=== PATIENT | male | born 1965 | race Caucasian/White ===

== ENCOUNTER → 2018-01-26 | Outpatient (CLI) | payer MEDICARE ==
[~2018-01-26] MED LIST: AMLO5TAB7 PO; CEPH-368 PO; HYDR-3622 PO; METO50TA82 PO; OMEP20TA62 PO
[2018-01-26 16:17] LABS: ALANINE AMINOTRANSFERASE 43 U/L (12-78); ALBUMIN 3.8 g/dL (3.4-5.0); ANION GAP 9 mmol/L (5-15); CALCIUM 8.7 mg/dL (8.5-10.1); CHLORIDE 107 mmol/L (98-107)
[2018-01-26 16:19] LABS: ALKALINE PHOSPHATASE 51 U/L (45-117); BILIRUBIN,TOTAL 0.4 mg/dL (0.2-1.0); TOTAL PROTEIN 7.2 g/dL (6.4-8.2)
[2018-01-26 16:21] LABS: BASOPHILS # (AUTO) 0.05 x10^3/uL (0-0.1); BASOPHILS % (AUTO) 1 % (0-1); EOSINOPHILS # (AUTO) 0.19 x10^3/uL (0-0.4); EOSINOPHILS % (AUTO) 2 % (1-7); LYMPHOCYTES # (AUTO) 1.47 x10^3/uL (1-3.4); LYMPHOCYTES % (AUTO) 18 % (22-44); MD NO; MEAN CORPUSCULAR HEMOGLOBIN 26.5 pg (27.5-34.5); MEAN CORPUSCULAR HGB CONC 32.8 g/dL (33.2-36.2); MEAN CORPUSCULAR VOLUME 80.8 fL (81-97); MEAN PLATELET VOLUME 8.7 fL (7.4-10.4); MONOCYTES # (AUTO) 0.63 x10^3/uL (0.2-0.8); MONOCYTES % (AUTO) 8 % (2-9); NEUTROPHILS # (AUTO) 5.94 x10^3/uL (1.8-6.8); NEUTROPHILS % (AUTO) 72 % (42-75); PLATELET COUNT 228 x10^3/uL (130-400); RED BLOOD COUNT 5.83 x10^6/uL (4.38-5.82); RED CELL DISTRIBUTION WIDTH 18.6 % (9.4-14.8)
[2018-01-26 16:21] LABS: MICROSCOPIC NOT IND
[2018-01-26 16:27] LABS: CULTURE INDICATED? NO
== END | disposition home or self-care (01) ==
LOC: STAR 15:03
PROVIDERS: ATTEND Orthopaedic Surgery
DX: Z01.818 Encounter for other preprocedural examination (principal); M16.12 Unilateral primary osteoarthritis, left hip; M25.552 Pain in left hip
CPT/HCPCS: 36415; 80053; 81003; 85025; 87081; 93005

== ENCOUNTER 2018-02-01 11:02 | Inpatient (IN) | payer MEDICARE ==
[~2018-02-01] VITALS: Ht 175.3 cm; Wt 92.1 kg
[2018-02-01] MEDS ORDERED: VANCOMYCIN PER PHARMACY MC STA (11:30)
[2018-02-01] MEDS ORDERED: LACTATED RINGERS 1,000 ML IV SCH (11:50)
[2018-02-01] MEDS ORDERED: ONDANSETRON ODT 8 MG PO ONE (12:00)
[2018-02-01] MEDS ORDERED: VANCOMYCIN 1,800 MG in SODIUM CHLORIDE 0.9% 250 ML IV ONE (12:00)
[2018-02-01] MEDS ORDERED: GABAPENTIN 300 MG CAPSULE PO ONE (12:00)
[2018-02-01] MEDS ORDERED: ACETAMINOPHEN 500 MG TABLET PO ONE (12:00)
[2018-02-01] MEDS ORDERED: FAMOTIDINE 20 MG TABLET PO ONE (12:00)
[2018-02-01] MEDS ORDERED: MIDAZOLAM 1 MG/ML, 2ML ONE (12:14)
[2018-02-01] MEDS ORDERED: FENTANYL PF 250 MCG/5ML ONE ×2 (12:14→14:58)
[2018-02-01] MEDS ORDERED: ONDANSETRON 2MG/ML, 2ML ONE (12:48)
[2018-02-01] MEDS ORDERED: SUCCINYLCHOLINE 20 MG/ML, 10ML ONE (12:48)
[2018-02-01] MEDS ORDERED: DEXAMETHASONE 4 MG/ML, 1ML ONE (12:48)
[2018-02-01] MEDS ORDERED: CEFAZOLIN 1,000 MG ONE (12:48)
[2018-02-01] MEDS ORDERED: ROCURONIUM 10MG/ML,5ML ONE (12:48)
[2018-02-01] MEDS ORDERED: GLYCOPYRROLATE 0.2MG/1ML, 5ML ONE (12:48)
[2018-02-01] MEDS ORDERED: PROPOFOL 10 MG/ML, 20ML ONE (12:48)
[2018-02-01] MEDS ORDERED: NEOSTIGMINE 1 MG/ML, 10ML ONE (12:48)
[2018-02-01] MEDS ORDERED: KETOROLAC 60 MG/2 ML ONE (13:26)
[2018-02-01] MEDS ORDERED: TRANEXAMIC ACID 100 MG/ML, 10ML ONE (13:26)
[2018-02-01] MEDS ORDERED: SODIUM CHLORIDE 0.9% 100 ML ONE (13:27)
[2018-02-01] MEDS ORDERED: ROPIvacaine/PF 0.2%, 20 ML ONE (13:27)
[2018-02-01] MEDS ORDERED: EPINEPHRINE 1 MG/ML, 1ML ONE (13:27)
[2018-02-01] MEDS ORDERED: KETAMINE 50 MG/ML, 10ML ONE (13:47)
[2018-02-01] MEDS ORDERED: LIDOCAINE 2% 100MG/5ML SYRINGE ONE (13:56)
[2018-02-01] MEDS ORDERED: ONDANSETRON 2MG/ML, 2ML IV PRN ×2 (14:30→16:00)
[2018-02-01] MEDS ORDERED: ONDANSETRON ODT 8 MG PO PRN (14:30)
[2018-02-01] MEDS ORDERED: LABETALOL 5MG/ML, 20ML IV PRN (14:30)
[2018-02-01] MEDS ORDERED: OXYcodone 5 MG/5 ML ORAL.SOL UDC PO PRN (14:30)
[2018-02-01] MEDS ORDERED: PROCHLORPERAZINE 5 MG/ML, 2ML IV PRN (14:30)
[2018-02-01] MEDS ORDERED: DIAZEPAM 5 MG/ML, 2ML IVPush PRN (14:30)
[2018-02-01] MEDS ORDERED: MORPHINE SULFATE 4 MG/ML, 1ML IVPush PRN (14:30)
[2018-02-01] MEDS ORDERED: MEPERIDINE/PF 25MG/0.5ML IVPush PRN (14:30)
[2018-02-01] MEDS ORDERED: hydrALAzine 20 MG/ML, 1ML IV PRN (14:30)
[2018-02-01] MEDS ORDERED: DIAZEPAM 5 MG TABLET PO PRN (16:00)
[2018-02-01] MEDS ORDERED: PROMETHAZINE 25 MG/ML, 1ML IM PRN (16:00)
[2018-02-01] MEDS: KETOROLAC 30 MG/1 ML IV SCH ×2 (16:00→22:05)
[2018-02-01] MEDS: ACETAMINOPHEN 650 MG/20.3 ML UDC PO SCH ×2 (16:00→22:05)
[2018-02-01] MEDS ORDERED: DIPHENHYDRAMINE 25 MG CAPSULE PO PRN (16:00)
[2018-02-01] MEDS ORDERED: ALUMINUM/MAG/SIMETHICONE 30 ML UDC PO PRN (16:00)
[2018-02-01] MEDS ORDERED: HYDROmorphone 1 MG/ML, 1ML IV PRN (16:00)
[2018-02-01] MEDS ORDERED: BISACODYL 10 MG SUPP PR PRN (16:00)
[2018-02-01] MEDS ORDERED: PROMETHAZINE 12.5 MG SUPP PR PRN (16:00)
[2018-02-01] MEDS ORDERED: MAGNESIUM HYDROXIDE 8%, 30ML UDC PO PRN (16:00)
[2018-02-01] MEDS ORDERED: ZOLPIDEM 5MG TABLET PO PRN (16:00)
[2018-02-01] MEDS ORDERED: SENNA/DOCUSATE TABLET PO PRN (16:00)
[2018-02-01] MEDS ORDERED: ONDANSETRON 4 MG TABLET PO PRN (16:00)
[2018-02-01] MEDS: FENTANYL PF 100 MCG/2ML IV PRN ×2 (16:15→16:25)
[2018-02-01] MEDS: HYDROmorphone 1 MG/ML, 1ML IV PRN ×2 (16:20→16:30)
[2018-02-01] MEDS: TAMSULOSIN 0.4 MG CAP.ER.24H PO SCH (16:30)
[2018-02-01] MEDS ORDERED: TRANEXAMIC ACID 1,000 MG in SODIUM CHLORIDE 0.9% 100 ML IVPB ONE (16:30)
[2018-02-01] MEDS: ASPIRIN 81 MG TABLET EC PO SCH (17:54)
[2018-02-01] MEDS: D5%-0.45% NACL 1,000 ML IV SCH ×2 (17:55→23:59)
[2018-02-01 19:20] VITALS: BP 142/84
[2018-02-01] MEDS: CEFAZOLIN 2,000 MG in DEXTROSE 5% 50 ML IVPB SCH (20:22)
[2018-02-01] MEDS: OXYcodone IR 5MG TABLET PO PRN (20:22)
[2018-02-01] MEDS: DOCUSATE 100 MG CAPSULE PO SCH (20:22)
[2018-02-01 23:54] VITALS: BP 128/77
[2018-02-02] MEDS: OXYcodone IR 5MG TABLET PO PRN ×3 (00:11→04:40)
[2018-02-02] MEDS: KETOROLAC 30 MG/1 ML IV SCH ×2 (04:24→10:00)
[2018-02-02] MEDS: ACETAMINOPHEN 650 MG/20.3 ML UDC PO SCH ×2 (04:24→10:00)
[2018-02-02] MEDS: CEFAZOLIN 2,000 MG in DEXTROSE 5% 50 ML IVPB SCH (04:30)
[2018-02-02 04:32] VITALS: BP 111/61
[2018-02-02] MEDS ORDERED: OMEPRAZOLE 20 MG CAPSULE.DR PO SCH (06:00)
[2018-02-02] MEDS ORDERED: DEXAMETHASONE 4 MG/ML, 1ML IVPush SCH (06:00)
[2018-02-02] MEDS: ASPIRIN 81 MG TABLET EC PO SCH (06:09)
[2018-02-02 07:20] VITALS: BP 128/75
[2018-02-02] MEDS: DOCUSATE 100 MG CAPSULE PO SCH (07:46)
[2018-02-02] MEDS: TAMSULOSIN 0.4 MG CAP.ER.24H PO SCH (07:47)
[2018-02-02] MEDS: D5%-0.45% NACL 1,000 ML IV SCH (07:47)
[2018-02-02] MEDS ORDERED: METOPROLOL TARTRATE 50 MG TABLET PO SCH (09:00)
[2018-02-02] MEDS ORDERED: MULTIVITAMINS/MINERALS TABLET PO SCH (09:00)
[2018-02-02] MEDS ORDERED: AMLODIPINE 5 MG TABLET PO SCH (09:00)
[2018-02-02] MEDS ORDERED: ASPI-621 PO (11:45)
== END 2018-02-02 12:52 | disposition home or self-care (01) | DRG 468 ==
LOC: ORIP 11:02 → 4NOR 17:14
PROVIDERS: ADMIT Orthopaedic Surgery; ATTEND Orthopaedic Surgery
PROC: 0SPB0JZ Removal of Synthetic Substitute from Left Hip Joint, Open Approach (ICD-10-PCS; 2018-02-01)
PROC: 0KNP0ZZ Release Left Hip Muscle, Open Approach (ICD-10-PCS; 2018-02-01)
PROC: 0SRB02Z Replacement of Left Hip Joint with Metal on Polyethylene Synthetic Substitute, Open Approach (ICD-10-PCS; principal; 2018-02-01 13:15)
DX: T84.84XA Pain due to internal orthopedic prosthetic devices, implants and grafts, initial encounter (principal); G89.29 Other chronic pain; M54.9 Dorsalgia, unspecified; M65.9 Synovitis and tenosynovitis, unspecified; X58.XXXA Exposure to other specified factors, initial encounter; Y93.89 Activity, other specified; Y92.89 Other specified places as the place of occurrence of the external cause; Y99.8 Other external cause status; Y83.8 Other surgical procedures as the cause of abnormal reaction of the patient, or of later complication, without mention of misadventure at the time of the procedure; J45.909 Unspecified asthma, uncomplicated; K21.9 Gastro-esophageal reflux disease without esophagitis; S76.012A Strain of muscle, fascia and tendon of left hip, initial encounter
CPT/HCPCS: 36415; 72170; 82962; 85014; 85018; 86850; 86900; G0378; J0171; J0690; J1100; J1170; J1885; J2250; J2405; J2704; J2710; J2795; J3010; J3370; J3490; Q0162; C1776; J0330; J7050; J7120

== ENCOUNTER → 2018-03-30 | Outpatient (CLI) | payer MEDICARE ==
[~2018-03-30] MED LIST changes: +AMLO-150 PO; -AMLO5TAB7 PO; +ASPI81TA45 PO
== END | disposition home or self-care (01) ==
LOC: STAR 11:21
PROVIDERS: ATTEND Orthopaedic Surgery
DX: M25.551 Pain in right hip (principal); L03.113 Cellulitis of right upper limb; M70.21 Olecranon bursitis, right elbow; M54.5 Low back pain; G56.02 Carpal tunnel syndrome, left upper limb; M19.011 Primary osteoarthritis, right shoulder; M50.30 Other cervical disc degeneration, unspecified cervical region; Z96.643 Presence of artificial hip joint, bilateral
CPT/HCPCS: 87081

== ENCOUNTER 2018-04-06 07:30 | Inpatient (IN) | payer MEDICARE ==
[~2018-04-06] VITALS: Ht 175.3 cm; Wt 92.4 kg
[2018-04-19] MEDS ORDERED: MIDAZOLAM 1 MG/ML, 2ML ONE (11:50)
[2018-04-19] MEDS ORDERED: FENTANYL PF 250 MCG/5ML ONE ×2 (11:51→14:33)
[2018-04-19] MEDS ORDERED: LACTATED RINGERS 1,000 ML IV SCH (11:54)
[2018-04-19] MEDS ORDERED: PROPOFOL 50 ML ONE ×2 (11:57→15:25)
[2018-04-19] MEDS ORDERED: VANCOMYCIN PER PHARMACY MC ONE (11:57)
[2018-04-19] MEDS ORDERED: GABAPENTIN 300 MG CAPSULE PO ONE (12:00)
[2018-04-19] MEDS ORDERED: ACETAMINOPHEN 500 MG TABLET PO ONE (12:00)
[2018-04-19 12:14] VITALS: BP 137/95
[2018-04-19] MEDS ORDERED: VANCOMYCIN 1,800 MG in SODIUM CHLORIDE 0.9% 250 ML IV ONE (12:30)
[2018-04-19] MEDS ORDERED: KETOROLAC 60 MG/2 ML ONE (13:02)
[2018-04-19] MEDS ORDERED: TRANEXAMIC ACID 100 MG/ML, 10ML ONE (13:02)
[2018-04-19] MEDS ORDERED: EPINEPHRINE 1 MG/ML, 1ML ONE (13:03)
[2018-04-19] MEDS ORDERED: SODIUM CHLORIDE 0.9% 50 ML ONE (13:03)
[2018-04-19] MEDS ORDERED: ROPIvacaine/PF 0.2%, 20 ML ONE ×2 (13:03→13:58)
[2018-04-19] MEDS ORDERED: VANCOMYCIN 1,000 MG ONE (13:03)
[2018-04-19] MEDS ORDERED: ALBUTEROL SULFATE 200 PUFFS/8.5 GR INH ONE (13:29)
[2018-04-19] MEDS ORDERED: LIDOCAINE PF 2%, 5ML ONE (13:29)
[2018-04-19] MEDS ORDERED: DIAZEPAM 5 MG/ML, 2ML IVPush PRN (13:30)
[2018-04-19] MEDS ORDERED: FENTANYL PF 100 MCG/2ML IV PRN (13:30)
[2018-04-19] MEDS ORDERED: LABETALOL 5MG/ML, 20ML IV PRN (13:30)
[2018-04-19] MEDS ORDERED: MEPERIDINE/PF 25MG/0.5ML IVPush PRN (13:30)
[2018-04-19] MEDS ORDERED: HYDROmorphone 2 MG/ML, 1ML IVPush PRN (13:30)
[2018-04-19] MEDS ORDERED: ONDANSETRON ODT 8 MG PO PRN (13:30)
[2018-04-19] MEDS ORDERED: OXYcodone 5 MG/5 ML ORAL.SOL UDC PO PRN (13:30)
[2018-04-19] MEDS ORDERED: ONDANSETRON 2MG/ML, 2ML IV PRN ×2 (13:30→17:00)
[2018-04-19] MEDS ORDERED: hydrALAzine 20 MG/ML, 1ML IV PRN (13:30)
[2018-04-19] MEDS ORDERED: ALBUTEROL/IPRATROPIUM 2.5MG/0.5MG, 3 ML NPPB PRN (13:30)
[2018-04-19] MEDS ORDERED: GLYCOPYRROLATE 0.2MG/1ML, 5ML ONE (14:08)
[2018-04-19] MEDS ORDERED: PROPOFOL 10 MG/ML, 20ML ONE (14:08)
[2018-04-19] MEDS ORDERED: NEOSTIGMINE 1 MG/ML, 10ML ONE (14:08)
[2018-04-19] MEDS ORDERED: CEFAZOLIN 1,000 MG ONE (14:08)
[2018-04-19] MEDS ORDERED: SUCCINYLCHOLINE 20 MG/ML, 10ML ONE (14:08)
[2018-04-19] MEDS ORDERED: ROCURONIUM 10MG/ML,5ML ONE (14:08)
[2018-04-19] MEDS ORDERED: DEXAMETHASONE 4 MG/ML, 1ML ONE (14:08)
[2018-04-19] MEDS ORDERED: ONDANSETRON 2MG/ML, 2ML ONE (14:08)
[2018-04-19 15:47] LABS: CELLS COUNTED 94
[2018-04-19] MEDS ORDERED: HYDROmorphone 1 MG/ML, 1ML ONE (16:50)
[2018-04-19] MEDS ORDERED: OXYcodone 5 MG/5 ML ORAL.SOL UDC ONE (16:50)
[2018-04-19] MEDS ORDERED: FENTANYL PF 100 MCG/2ML ONE (16:50)
[2018-04-19] MEDS: HYDROmorphone 1 MG/ML, 1ML IV PRN ×2 (16:56→17:06)
[2018-04-19] MEDS ORDERED: ZOLPIDEM 5MG TABLET PO PRN (17:00)
[2018-04-19] MEDS ORDERED: SENNA/DOCUSATE TABLET PO PRN (17:00)
[2018-04-19] MEDS ORDERED: HYDROcodone/APAP 10/325 MG TABLET PO PRN (17:00)
[2018-04-19] MEDS ORDERED: ONDANSETRON 4 MG TABLET PO PRN (17:00)
[2018-04-19] MEDS ORDERED: TRANEXAMIC ACID 1,000 MG in SODIUM CHLORIDE 0.9% 100 ML IVPB ONE (17:00)
[2018-04-19] MEDS ORDERED: BISACODYL 10 MG SUPP PR PRN (17:00)
[2018-04-19] MEDS ORDERED: PROMETHAZINE 12.5 MG SUPP PR PRN (17:00)
[2018-04-19] MEDS ORDERED: PROMETHAZINE 25 MG/ML, 1ML IM PRN (17:00)
[2018-04-19] MEDS ORDERED: ALUMINUM/MAG/SIMETHICONE 30 ML UDC PO PRN (17:00)
[2018-04-19] MEDS ORDERED: MAGNESIUM HYDROXIDE 8%, 30ML UDC PO PRN (17:00)
[2018-04-19 17:45] VITALS: BP 134/77
[2018-04-19] MEDS: SODIUM CHLORIDE 0.9% 1,000 ML IV SCH (19:50)
[2018-04-19] MEDS: ACETAMINOPHEN 500 MG TABLET PO SCH (19:51)
[2018-04-19 20:31] VITALS: BP 121/76
[2018-04-19] MEDS ORDERED: ACETAMINOPHEN 500 MG TABLET PO SCH (21:00)
[2018-04-19] MEDS: DOCUSATE 100 MG CAPSULE PO SCH (21:56)
[2018-04-19] MEDS: CEFAZOLIN PMX 2GM/50ML 50 ML IVPB SCH (21:56)
[2018-04-19] MEDS: OXYcodone/APAP 5/325MG TABLET PO PRN (23:09)
[2018-04-20 00:10] VITALS: BP 128/72
[2018-04-20] MEDS: DIAZEPAM 5 MG TABLET PO PRN ×2 (00:23→12:10)
[2018-04-20] MEDS: ACETAMINOPHEN 500 MG TABLET PO SCH ×3 (01:35→14:38)
[2018-04-20] MEDS: DIPHENHYDRAMINE 25 MG CAPSULE PO PRN ×2 (02:22→10:30)
[2018-04-20] MEDS: SODIUM CHLORIDE 0.9% 1,000 ML IV SCH ×2 (04:00→12:27)
[2018-04-20] MEDS: OXYcodone/APAP 5/325MG TABLET PO PRN ×3 (04:19→13:18)
[2018-04-20 04:52] VITALS: BP 112/66
[2018-04-20] MEDS ORDERED: DEXAMETHASONE 4 MG/ML, 1ML IVPush SCH (06:00)
[2018-04-20] MEDS ORDERED: ASPIRIN 81 MG TABLET EC PO SCH (06:00)
[2018-04-20] MEDS: CEFAZOLIN PMX 2GM/50ML 50 ML IVPB SCH (06:23)
[2018-04-20] MEDS: DOCUSATE 100 MG CAPSULE PO SCH (08:39)
[2018-04-20 08:59] VITALS: BP 153/84
[2018-04-20] MEDS ORDERED: MULTIVITAMINS/MINERALS TABLET PO SCH (09:00)
[2018-04-20] MEDS ORDERED: OMEPRAZOLE 20 MG CAPSULE.DR PO SCH (09:00)
[2018-04-20] MEDS ORDERED: METOPROLOL TARTRATE 50 MG TABLET PO SCH (09:00)
[2018-04-20] MEDS ORDERED: AMLODIPINE 5 MG TABLET PO SCH (09:00)
[2018-04-20 15:01] VITALS: BP 129/73
[2018-04-20] MEDS ORDERED: KETOROLAC 30 MG/1 ML IV SCH (17:00)
== END 2018-04-20 15:20 | disposition home or self-care (01) | DRG 467 ==
LOC: ORIP 04-19 11:34 → 4NOR 04-19 17:35
PROVIDERS: ADMIT Orthopaedic Surgery; ATTEND Orthopaedic Surgery
PROC: 0SRR03A Replacement of Right Hip Joint, Femoral Surface with Ceramic Synthetic Substitute, Uncemented, Open Approach (ICD-10-PCS; 2018-04-19)
PROC: 0SPR0JZ Removal of Synthetic Substitute from Right Hip Joint, Femoral Surface, Open Approach (ICD-10-PCS; 2018-04-19)
PROC: 0SUA09Z Supplement Right Hip Joint, Acetabular Surface with Liner, Open Approach (ICD-10-PCS; 2018-04-19)
PROC: 0SP909Z Removal of Liner from Right Hip Joint, Open Approach (ICD-10-PCS; principal; 2018-04-19 14:30)
PROC: 5A09357 Assistance with Respiratory Ventilation, Less than 24 Consecutive Hours, Continuous Positive Airway Pressure (ICD-10-PCS; 2018-04-20)
DX: T84.030A Mechanical loosening of internal right hip prosthetic joint, initial encounter (principal); R71.0 Precipitous drop in hematocrit; M16.11 Unilateral primary osteoarthritis, right hip; M16.0 Bilateral primary osteoarthritis of hip; M61.58 Other ossification of muscle, other site; I10 Essential (primary) hypertension; J44.9 Chronic obstructive pulmonary disease, unspecified; Y83.8 Other surgical procedures as the cause of abnormal reaction of the patient, or of later complication, without mention of misadventure at the time of the procedure; Y92.89 Other specified places as the place of occurrence of the external cause
CPT/HCPCS: 36415; 72170; 85014; 85018; 87070; 87075; 87205; 89051; G0378; J0171; J0690; J1100; J1170; J1885; J2250; J2405; J2704; J2710; J2795; J3010; J3370; J3490; C1769; C1776; J0330; J7030; J7050; J7120; Q0163

== ENCOUNTER 2018-04-24 16:18 | Emergency (ER) | payer MEDICARE ==
[~2018-04-24] VITALS: Ht 175.3 cm; Wt 90.0 kg
[2018-04-24] MEDS ORDERED: OXYC-307 PO (17:07)
[2018-04-24] MEDS ORDERED: ACET325T14 PO (17:08)
--- NOTE | 2018-04-24 17:21 | NUR ---
CHILLS, BODY ACHES, 89 FEVER AT HOME. DAUGHTER AND HAVE BEEN ILL THIS WEEK. MD AT BEDSIDE EXAMINING PT
--- NOTE | 2018-04-24 17:45 | NUR ---
XRAY AND LAB AT BEDSIDE
[2018-04-24 17:56] LABS: BASOPHILS # (AUTO) 0.02 x10^3/uL (0-0.1); BASOPHILS % (AUTO) 0 % (0-1); EOSINOPHILS # (AUTO) 0.05 x10^3/uL (0-0.4); EOSINOPHILS % (AUTO) 1 % (1-7); LYMPHOCYTES # (AUTO) 0.24 x10^3/uL (1-3.4); LYMPHOCYTES % (AUTO) 5 % (22-44); MD NO; MEAN CORPUSCULAR HEMOGLOBIN 28.8 pg (27.5-34.5); MEAN CORPUSCULAR VOLUME 84.6 fL (81-97); MEAN PLATELET VOLUME 7.2 fL (7.4-10.4); MONOCYTES # (AUTO) 0.47 x10^3/uL (0.2-0.8); MONOCYTES % (AUTO) 9 % (2-9); NEUTROPHILS % (AUTO) 85 % (42-75); PLATELET COUNT 251 x10^3/uL (130-400); RED BLOOD COUNT 3.52 x10^6/uL (4.38-5.82); RED CELL DISTRIBUTION WIDTH 15.3 % (9.4-14.8)
[2018-04-24 18:05] LABS: ALBUMIN 2.9 g/dL (3.4-5.0); ANION GAP 6 mmol/L (5-15); CALCIUM 8.9 mg/dL (8.5-10.1); CHLORIDE 100 mmol/L (98-107); CREATININE 0.89 mg/dL (0.7-1.3)
[2018-04-24 18:19] LABS: RAPID INFLUENZA A POSITIVE (Negative); RAPID INFLUENZA B Negative (Negative)
[2018-04-24] MEDS ORDERED: BENZONATATE 100 MG CAPSULE ONE (18:33)
[2018-04-24 18:38] VITALS: BP 122/85
--- NOTE | 2018-04-24 18:38 | NUR ---
Pt with frequent non-productive cough, discussed with Dr. Fowler. Orders received for 200mg Tessalon perls PO. Pt medicated per order, Dr. Fowler at bedside to discuss POC with pt.
--- NOTE | 2018-04-24 18:40 | NUR ---
AMBULATED TO BATHROOM WITH USE OF WALKER
[2018-04-24] MEDS ORDERED: BENZONATATE 100 MG CAPSULE PO ONE (19:00)
--- NOTE | 2018-04-24 19:08 | NUR ---
TASK RN: Discharge instructions discussed with patient, verbalizes understanding. Prescription provided to patient. Patient ambulates with steady gait.
== END 2018-04-24 19:10 | disposition home or self-care (01) ==
LOC: ED 18:28
DX: J10.1 Influenza due to other identified influenza virus with other respiratory manifestations (principal); J45.909 Unspecified asthma, uncomplicated; R00.0 Tachycardia, unspecified
CPT/HCPCS: 36415; 71045; 80048; 82040; 83605; 85025; 87040; 87400; 93005; 99284